=== PATIENT | female | born 1985 | race Caucasian/White ===

== ENCOUNTER 2020-02-29 17:47 | Emergency (ER) | payer MEDICAID ==
--- NOTE | 2020-02-29 18:50 | EDM.PDOC ---
ED HPI GENERAL MEDICAL PROBLEM - General Chief Complaint: Lower Extremity Injury/Pain Stated Complaint: RT LEG UNABLE TO MOVE Time Seen by Provider: 02/29/20 18:34 Source of Information: Reports: Patient, RN Notes Reviewed History Limitations: Reports: No Limitations - History of Present Illness INITIAL COMMENTS - FREE TEXT/NARRATIVE: 34-year-old female presents emergency department a complaint of right hip pain, she states the pain awoke her this morning a little after midnight pain is so intense she cannot bend at the waist or ambulate on it she can move her ankle her toes and move her knee with support but it is painful to move the knee. She does have a history of rheumatoid arthritis as well as diabetes mellitus type 1 is on combination methotrexate and hydroxychloroquine - Related Data Allergies Allergy/AdvReac Type Severity Reaction Status Date / Time lisinopril Allergy Cough Verified 02/29/20 18:24 Penicillins Allergy Rash Verified 02/29/20 18:24 Home Meds: Home Meds *Leucovorin Calcium 5 mg PO WEEKLY 02/29/20 [History] ALPRAZolam 1 mg PO BEDTIME 02/29/20 [History] Dextroamphetamine/Amphetamine [Adderall Xr 10 mg Capsule] 10 mg PO ASDIRECTED [History] Dextroamphetamine/Amphetamine [Dextroamp-Amphet ER 15 mg Cap] 15 mg PO DAILY [History] Folic Acid 2 mg PO DAILY 02/29/20 [History] Hydroxychloroquine [Plaquenil] 200 mg PO BID 02/29/20 [History] Insulin Aspart [NovoLOG] 1 unit SQ ASDIRECTED 02/29/20 [History] Levonorgestrel/Ethin.estradiol [Vienva-28 Tablet] 1 tab PO DAILY 02/29/20 [ History] Levothyroxine Sodium [Synthroid] 137 mcg PO DAILY 02/29/20 [History] Methotrexate 0.7 ml SQ WEEKLY 02/29/20 [History] Pilocarpine [Salagen] 5 mg PO TID 02/29/20 [History] Topiramate 50 mg PO BID 02/29/20 [History] Vilazodone [Viibryd] 40 mg PO DAILY 02/29/20 [History] busPIRone HCl [busPIRone] 15 - 30 mg PO BEDTIME 05/27/20 [History] diphenhydrAMINE [Benadryl] 50 mg PO BEDTIME 02/29/20 [History] Past Medical History HEENT History: Reports: Impaired Vision Musculoskeletal History: Reports: RA Neurological History: Reports: Concussion, CVA, Seizure Psychiatric History: Reports: Anxiety, Depression, Panic Attack, PTSD, Suicidal Ideation Endocrine/Metabolic History: Reports: Diabetes, Type I, Hypothyroidism, Vitamin D Deficiency Immunologic History: Reports: Immunosuppression - Past Surgical History Musculoskeletal Surgical History: Reports: Carpal Tunnel Social & Family History - Tobacco Use Smoking Status *Q: Never Smoker - Caffeine Use Caffeine Use: Reports: None - Recreational Drug Use Recreational Drug Use: No Review of Systems - Review of Systems Review Of Systems: See Below Constitutional: Reports: No Symptoms Respiratory: Reports: No Symptoms Cardiovascular: Reports: No Symptoms Musculoskeletal: Reports: Joint Pain (Right hip pain) Neurological: Reports: No Symptoms ED EXAM, GENERAL - Physical Exam Exam: See Below Free Text/Narrative:: Examination of the right lower extremity she can move the ankle can move the toes sensation is intact can move the knee with support however any amount of flexion or extension internal or external rotation of the hip causes intense pain she can only do about 15 degrees in both directions of flexion and extension. Pedal pulses +2 Exam Limited By: No Limitations General Appearance: Alert, WD/WN, No Apparent Distress Respiratory/Chest: No Respiratory Distress Neurological: No Motor/Sensory Deficits Course - Vital Signs Last Recorded V/S: Last Vital Signs Temp 98.6 F 02/29/20 18:21 Pulse 106 H 02/29/20 19:30 Resp 17 02/29/20 19:30 BP 129/83 02/29/20 19:30 Pulse Ox 100 02/29/20 19:30 - Orders/Labs/Meds Labs: Laboratory Tests 02/29/20 02/29/20 Range/Units 18:46 19:03 WBC 8.8 (4.5-11.0) K/uL RBC 4.29 (3.30-5.50) M/uL Hgb 12.9 (12.0-15.0) g/dL Hct 38.5 (36.0-48.0) % MCV 90 (80-98) fL MCH 30 (27-31) pg MCHC 34 (32-36) % Plt Count 296 (150-400) K/uL Neut % (Auto) 66 (36-66) % Lymph % (Auto) 16 L (24-44) % [place] % (Auto) 17 H (2-6) % Eos % (Auto) 1 L (2-4) % Baso % (Auto) 1 (0-1) % ESR 22 (0-25) mm/hr Sodium 137 L (140-148) mmol/L Potassium 4.4 (3.6-5.2) mmol/L Chloride 104 (100-108) mmol/L Carbon Dioxide 22 (21-32) mmol/L Anion Gap 15.4 H (5.0-14.0) mmol/L BUN 20 H (7-18) mg/dL Creatinine 1.1 H (0.6-1.0) mg/dL Est Cr Clr Drug Dosing 74.07 mL/min Estimated GFR (MDRD) 58 L (>60) Glucose 403 H* (74-106) mg/dL Calcium 8.4 L (8.5-10.1) mg/dL Total Bilirubin 0.5 (0.2-1.0) mg/dL AST 10 L (15-37) U/L ALT 18 (12-78) U/L Alkaline Phosphatase 51 (46-116) U/L C-Reactive Protein 10.22 H (0.0-0.3) mg/dL Total Protein 7.1 (6.4-8.2) g/dL Albumin 3.2 L (3.4-5.0) g/dL Globulin 3.9 H (2.3-3.5) g/dL Albumin/Globulin Ratio 0.8 L (1.2-2.2) Meds: Medications Discontinued Medications Generic Name Dose Route Start Last Admin Trade Name Lakeisha PRN Reason Stop Dose Admin Fentanyl 50 mcg 02/29/20 19:20 02/29/20 19:27 Sublimaze IM 02/29/20 19:21 50 mcg ONETIME ONE Administration Departure - Departure Time of Disposition: 21:54 Disposition: Home, Self-Care 01 Condition: Fair Clinical Impression: Right hip pain - Discharge Information Instructions: Joint Pain Referrals: PCP,None [Primary Care Provider] - Forms: ED Department Discharge Additional Instructions: Continue to use ibuprofen for baseline pain control add the tramadol as needed for breakthrough pain, please follow-up with your tonnage compilation clerk upon return home call or return to the emergency department worsening of symptoms Sepsis Event Note - Evaluation Sepsis Screening Result: No Definite Risk - Focused Exam Vital Signs: Vital Signs Temp Pulse Resp BP Pulse Ox 02/29/20 19:30 106 H 17 129/83 100 02/29/20 18:21 98.6 F 122 H 16 129/76 98 02/29/20 18:07 98.6 F 122 H 16 129/76 98 Date Exam was Performed: 02/29/20 Time Exam was Performed: 21:53 - Assessment/Plan Plan: Assessment Acuity = acute Site and laterality = right hip pain Etiology = unknown Manifestations = none Location of injury = Home Lab values = CBC unremarkable CMP reveals a creatinine elevated 1.1 consistent with acute renal failure stage G3 a CRP elevated 10.22 sed rate is normal at 22 x-ray shows no acute process CT scan hip also no acute process or occult fracture identified Plan She had some relief with fentanyl provided in the emergency department was able to stand and ambulate plans discharge home she will continue use anti- inflammatories and then Ultram 50 mg 1 tab p.o. 3 times daily as needed for pain control total #15, she will follow-up with her tonnage compilation clerk upon return home This note was dictated using [employer] voice recognition software please call with any questions on syntax or grammar.
[2020-02-29] MEDS ORDERED: fentaNYL 100 MCG/2 ML SDV IM ONE (19:20)
--- NOTE | 2020-02-29 20:58 | CRLCR ---
INDICATION: Pain, unable to stand. History of steroid use. No history of trauma. COMPARISON: None available. TECHNIQUE: The right hip was examined with PA and frogleg lateral views for a total of two views. FINDINGS: There is no sign of fracture or dislocation. The femoral head and acetabulum are in anatomic alignment. There is no sign of any sclerosis or femoral head collapse to suggest avascular necrosis. There is no sign of degenerative disease. The visualized bony pelvis and soft tissues are normal in appearance. IMPRESSION: Normal right hip. No sign of avascular necrosis or degenerative disease. Dictated by Damaso Mandujano MD @ Feb 29 2020 8:55PM Signed by Dr. Damaso Mandujano @ Feb 29 2020 8:56PM
--- NOTE | 2020-02-29 21:00 | CRLCT ---
INDICATION: Pain. Unable to stand. TECHNIQUE: CT pelvis and right hip without contrast. COMPARISON: Hip x-ray February 29, 2020. FINDINGS: Bones: Alignment is normal. No sign of acute fracture. No suspicious bony lesions. Joints: Unremarkable. Soft tissues: Unremarkable. IMPRESSION: Unremarkable pelvis and right hip. No findings to explain pain. Dictated by Darshan Fraire MD @ 02/29/2020 8:58:31 PM Please note that all CT scans at this facility use dose modulation, iterative reconstruction, and/or weight-based dosing when appropriate to reduce radiation dose to as low as reasonably achievable. Dictated by: Darshan Fraire MD @ 02/29/2020 20:58:37 (Electronically Signed)
== END 2020-02-29 22:16 | disposition home or self-care (01) ==
LOC: JP.ED 17:47
DX: M25.551 Pain in right hip (principal); E10.9 Type 1 diabetes mellitus without complications; E03.9 Hypothyroidism, unspecified; F41.0 Panic disorder [episodic paroxysmal anxiety]; F32.9 Major depressive disorder, single episode, unspecified; F43.10 Post-traumatic stress disorder, unspecified; Z86.73 Personal history of transient ischemic attack (TIA), and cerebral infarction without residual deficits; Z88.0 Allergy status to penicillin; Z88.8 Allergy status to other drugs, medicaments and biological substances; Z79.899 Other long term (current) drug therapy
CPT/HCPCS: 36415; 73502; 73700; 80053; 85025; 85651; 86140; 96372; 99283; J3010

== ENCOUNTER 2022-05-23 10:53 | Emergency (ER) | payer MEDICAID ==
[2022-05-23 12:09] LABS: ESTIMATED GFR 75 mL/min (>60)
== END 2022-05-23 12:59 | disposition home or self-care (01) ==
LOC: JP.ED 10:53
DX: U07.1 COVID-19 (principal); E86.0 Dehydration; E10.9 Type 1 diabetes mellitus without complications; E03.9 Hypothyroidism, unspecified; Z88.0 Allergy status to penicillin; Z88.8 Allergy status to other drugs, medicaments and biological substances; Z79.4 Long term (current) use of insulin; Z79.899 Other long term (current) drug therapy; Z86.73 Personal history of transient ischemic attack (TIA), and cerebral infarction without residual deficits
CPT/HCPCS: 36415; 80053; 81001; 85025; 86140; 87086; 99284; U0002